=== PATIENT | male | born 1970 | race Caucasian/White ===

== ENCOUNTER 2018-05-27 20:17 | Emergency (ER) | payer MEDICAID ==
[2018-05-27] MEDS: ONDANSETRON 4 MG INJ IV (21:59)
[2018-05-27] MEDS: morphine 2 MG INJ IV (21:59)
[2018-05-27] MEDS: SOD CHLORIDE 0.9% 1,000 ML IV (22:00)
[2018-05-27 22:09] LABS: ADD MAN DIFF? NO
[2018-05-27 22:49] LABS: BASOPHILS % 0.3 % (0.0-2.0); EOSINOPHILS # 0.1 10^3/ul (0.0-0.5); EOSINOPHILS % 0.5 % (0.0-7.0); HEMATOCRIT 42.9 % (42.0-52.0); HEMOGLOBIN 15.2 g/dl (14.0-18.0); LYMPHOCYTES # 1.1 10^3/ul (0.8-2.9); LYMPHOCYTES % 8.5 % (15.0-51.0); MEAN CORPUSCULAR HEMOGLOBIN 32.4 pg (29.0-33.0); MEAN CORPUSCULAR HGB CONC 35.4 g/dl (32.0-37.0); MEAN CORPUSCULAR VOLUME 91.5 fl (82.0-101.0); MONOCYTES % 7.8 % (0.0-11.0); NEUTROPHIL # 10.8 10^3/ul (1.6-7.5); NEUTROPHILS % 82.4 % (39.0-77.0); PLATELET COUNT 212 10^3/UL (140-415); RED BLOOD COUNT 4.69 10^6/ul (4.70-6.10); RED CELL DISTRIBUTION WIDTH 12.9 % (11.5-14.5)
[2018-05-27 22:49] LABS: WHITE BLOOD COUNT 13.1 10^3/ul (4.8-10.8)
[2018-05-27 23:45] LABS: ALANINE AMINOTRANSFERASE 73 IU/L (13-69); ALBUMIN 4.2 g/dl (3.3-4.9); ALBUMIN/GLOBULIN RATIO 1.35; ALKALINE PHOSPHATASE 93 IU/L (42-121); ANION GAP 16 (8-16); ASPARTATE AMINO TRANSFERASE 64 IU/L (15-46); BILIRUBIN,INDIRECT 0.4 mg/dl (0-1.1); BILIRUBIN,TOTAL 0.4 mg/dl (0.2-1.3); BLOOD UREA NITROGEN 15 mg/dl (7-20); CALCIUM 9.1 mg/dl (8.4-10.2); CARBON DIOXIDE 26 mmol/L (21-31); CHLORIDE 105 mmol/L (97-110); GLUCOSE 143 mg/dl (70-220); LIPASE 46 U/L (23-300); POTASSIUM 4.2 mmol/L (3.5-5.1); SODIUM 143 mmol/L (135-144); TOTAL PROTEIN 7.3 g/dl (6.1-8.1)
[2018-05-27 23:56] LABS: TROPONIN-I < 0.010 ng/ml (0.000-0.120)
[2018-05-28 00:22] LABS: INR 0.96; PARTIAL THROMBOPLASTIN TIME 25.8 Sec (25.0-35.0); PROTIME 12.9 Sec (11.9-14.9)
== END 2018-05-28 01:18 | disposition home or self-care (01) ==
LOC: FTE 05-28 01:18
DX: K56.7 Ileus, unspecified (principal)
CPT/HCPCS: 36415; 74176; 80053; 81003; 83690; 84484; 85025; 85610; 85730; 93005; 96374; 96375; 99285-25

== ENCOUNTER 2018-05-28 09:39 | Emergency (ER) | payer MEDICAID ==
[2018-05-28 10:15] LABS: URINE PH (Dip) POC 6.5 (5.0-8.5)
[2018-05-28 10:15] LABS: URINE BLOOD (Dip) POC 2+ (NEGATIVE); URINE GLUCOSE (Dip) POC Negative (NEGATIVE); URINE KETONES (Dip) POC Negative (NEGATIVE); URINE LEUKOCYTE EST (Dip) POC Negative (NEGATIVE); URINE NITRITE (Dip) POC Negative (NEGATIVE); URINE TOTAL PROTEIN POC Trace (NEGATIVE)
== END 2018-05-28 10:41 | disposition home or self-care (01) ==
LOC: FTE 09:39
DX: R10.9 Unspecified abdominal pain (principal)
CPT/HCPCS: 81003; 99283; Z7502